=== PATIENT | female | born 1990 | race Caucasian/White ===

== ENCOUNTER 2022-01-02 05:20 | Inpatient (IN) | payer BC ==
[2022-01-02] MEDS ORDERED: Sodium Chloride 0.9% 10 ML Syringe FLUSH PRN (06:30)
[2022-01-02] MEDS ORDERED: Citric Acid/Sodium Citrate Solution 30 ML Cup PO ONE (06:30)
[2022-01-02] MEDS ORDERED: Oxytocin/0.9 % Sodium Chloride 30 UNIT/500 ML BAG IV SCH (06:30)
[2022-01-02] MEDS ORDERED: Sodium Chloride 0.9% 2.5 ML Syringe FLUSH PRN (06:30)
[2022-01-02] MEDS ORDERED: Sodium Chloride 0.9% 20 ML SDV IV PRN (06:30)
[2022-01-02] MEDS: Lactated Ringers 1,000 ML IV SCH ×2 (06:45→08:36)
[2022-01-02] MEDS ORDERED: HYDROmorphone 1 MG/ML Syringe IVPUSH PRN (07:26)
[2022-01-02] MEDS ORDERED: fentaNYL 100 MCG/2 ML SDV IVPUSH PRN ×2 (07:26)
[2022-01-02] MEDS ORDERED: Metoclopramide 10 MG/2 ML SDV IVPUSH PRN (07:26)
[2022-01-02] MEDS ORDERED: Morphine 2 MG/ML SYRINGE IVPUSH PRN (07:26)
[2022-01-02] MEDS ORDERED: Acetaminophen/oxyCODONE 325-5 MG Tab PO PRN ×2 (07:26→09:53)
[2022-01-02] MEDS ORDERED: ePHEDrine 50 MG/ML SDV IVPUSH PRN (07:26)
[2022-01-02] MEDS ORDERED: Naloxone 0.4 MG/ML SDV IVPUSH PRN (07:26)
[2022-01-02] MEDS ORDERED: Ondansetron 4 MG/2 ML SDV IVPUSH PRN ×3 (07:26→09:53)
[2022-01-02] MEDS ORDERED: diphenhydrAMINE 50 MG/ML SDV IVPUSH PRN (07:26)
[2022-01-02] MEDS ORDERED: Albuterol 0.083% 2.5 MG/3 ML Neb Soln NEB PRN (07:26)
[2022-01-02] MEDS ORDERED: Ropivacaine 0.5% 5 MG/ML 30 ML SDV ONE ×2 (07:29→07:30)
[2022-01-02] MEDS ORDERED: Lidocaine 2% 100 MG/5 ML Syringe ONE (07:30)
[2022-01-02] MEDS ORDERED: Oxytocin 10 Units/1 ML SDV ONE ×3 (07:30→07:31)
[2022-01-02] MEDS ORDERED: ceFAZolin 1 GM Vial ONE ×2 (07:31)
[2022-01-02] MEDS ORDERED: Phenylephrine 1% 10 MG/ML SDV ONE (07:31)
[2022-01-02] MEDS ORDERED: Dexamethasone 4 MG/ML 5 ML MDV ONE (07:32)
[2022-01-02] MEDS ORDERED: Morphine PF 10 MG/10 ML SDV ONE (07:32)
[2022-01-02] MEDS ORDERED: ceFAZolin 2 GM in Premix Bag 1 BAG IV ONE (07:45)
[2022-01-02] MEDS ORDERED: Ketorolac 30 MG/ML SDV ONE (09:51)
[2022-01-02] MEDS ORDERED: Lanolin 100% Cream 7 GM Tube TOP PRN (09:53)
[2022-01-02] MEDS ORDERED: Bisacodyl 10 MG Supp RECTAL PRN (09:53)
[2022-01-02] MEDS ORDERED: Lactated Ringers 1,000 ML IV SCH (10:00)
[2022-01-02] MEDS: diphenhydrAMINE 50 MG/ML SDV IVPUSH PRN ×2 (10:17→22:04)
[2022-01-02] MEDS: Ketorolac 30 MG/ML SDV IVPUSH SCH ×3 (10:19→22:04)
[2022-01-02] MEDS: Docusate Sodium 100 MG Cap PO SCH (22:04)
[2022-01-03] MEDS: Ketorolac 30 MG/ML SDV IVPUSH SCH ×2 (04:18→09:40)
[2022-01-03] MEDS ORDERED: Measles, Mumps & Rubella Vaccine 0.5 ML SDV SUBCUT ONE (08:59)
[2022-01-03] MEDS: Docusate Sodium 100 MG Cap PO SCH ×2 (09:41→20:28)
[2022-01-03] MEDS: Acetaminophen/oxyCODONE 325-5 MG Tab PO PRN (16:00)
[2022-01-03] MEDS: Ibuprofen 800 MG Tab PO PRN (20:28)
[2022-01-04] MEDS: Acetaminophen/oxyCODONE 325-5 MG Tab PO PRN ×2 (00:26→06:29)
[2022-01-04] MEDS: Ibuprofen 800 MG Tab PO PRN ×2 (04:43→10:09)
[2022-01-04] MEDS: Docusate Sodium 100 MG Cap PO SCH (10:09)
== END 2022-01-04 11:45 | disposition home or self-care (01) | DRG 540 ==
LOC: MW.OB 05:20 → MERGE 08:00 → MW.OB 19:33
PROVIDERS: ADMIT Obstetrics & Gynecology; ATTEND Obstetrics & Gynecology
PROC: 10D00Z1 Extraction of Products of Conception, Low, Open Approach (ICD-10-PCS; principal; 2022-01-02)
PROC: 3E0234Z Introduction of Serum, Toxoid and Vaccine into Muscle, Percutaneous Approach (ICD-10-PCS; 2022-01-04)
DX: O34.211 Maternal care for low transverse scar from previous cesarean delivery (principal); Z37.0 Single live birth; Z86.16 Personal history of COVID-19; Z3A.39 39 weeks gestation of pregnancy; O99.354 Diseases of the nervous system complicating childbirth; G43.909 Migraine, unspecified, not intractable, without status migrainosus
CPT/HCPCS: 01961; 36415; 59025; 64488; 85014; 85018; 85027; 86592; 86850; 86900; 86901; 90471; 90707; A9270-GY; J0131; J0690; J1100; J1200; J1885; J2274; J2370; J2590; J2795; J7120

== ENCOUNTER 2022-07-07 04:40 | Observation (INO) | payer BC ==
[2022-07-07] MEDS ORDERED: Sodium Chloride 0.9% 1,000 ML IV ONE ×2 (04:56→06:42)
[2022-07-07] MEDS ORDERED: Ondansetron 4 MG/2 ML SDV IVPUSH ONE (04:56)
[2022-07-07] MEDS ORDERED: Ketorolac 30 MG/ML SDV IVPUSH ONE (04:56)
[2022-07-07 05:36] LABS: CARBON DIOXIDE,CO2 26.3 mmol/L (21.0-32.0); POTASSIUM,K 4.1 mmol/L (3.5-5.1)
[2022-07-07] MEDS ORDERED: Iopamidol 755 MG/ML 500 ML Multipack Bottle IVPUSH STA (06:04)
[2022-07-07] MEDS ORDERED: cefTRIAXone 1 GM in Sodium Chloride 0.9% 50 ML IV ONE (06:35)
[2022-07-07] MEDS ORDERED: metroNIDAZOLE/Normal Saline 500 MG in Premix Bag 1 BAG IV ONE (06:35)
[2022-07-07] MEDS ORDERED: Acetaminophen 325 MG Tab PO PRN (09:33)
[2022-07-07] MEDS ORDERED: Acetaminophen/HYDROcodone 325-5 MG Tab PO PRN (09:33)
[2022-07-07] MEDS: Ondansetron 4 MG/2 ML SDV IVPUSH PRN ×3 (09:49→21:48)
[2022-07-07] MEDS: HYDROmorphone 2 MG/ML Syringe IVPUSH PRN ×4 (09:49→22:05)
[2022-07-07] MEDS: Piperacillin/Tazobactam 3.375 GM in Sodium Chloride 0.9% 50 ML IV SCH ×3 (11:13→21:51)
[2022-07-07] MEDS: Sodium Chloride 0.9% 1,000 ML IV SCH (17:54)
[2022-07-08] MEDS: Sodium Chloride 0.9% 1,000 ML IV SCH ×2 (02:29→11:23)
[2022-07-08] MEDS: HYDROmorphone 2 MG/ML Syringe IVPUSH PRN ×5 (02:40→17:25)
[2022-07-08] MEDS: Ondansetron 4 MG/2 ML SDV IVPUSH PRN (02:40)
[2022-07-08] MEDS: Piperacillin/Tazobactam 3.375 GM in Sodium Chloride 0.9% 50 ML IV SCH ×3 (04:53→16:13)
[2022-07-08 07:01] LABS: CARBON DIOXIDE,CO2 22.5 mmol/L (21.0-32.0); POTASSIUM,K 3.8 mmol/L (3.5-5.1)
[2022-07-08] MEDS ORDERED: Metoclopramide 10 MG/2 ML SDV IVPUSH PRN (07:30)
[2022-07-08] MEDS ORDERED: Naloxone 0.4 MG/ML SDV IVPUSH PRN (07:30)
[2022-07-08] MEDS ORDERED: fentaNYL 50 MCG/ML SDV IVPUSH PRN (07:30)
[2022-07-08] MEDS ORDERED: HYDROmorphone 1 MG/ML Syringe IVPUSH PRN (07:30)
[2022-07-08] MEDS ORDERED: Ondansetron 4 MG/2 ML SDV IVPUSH PRN (07:30)
[2022-07-08] MEDS ORDERED: Albuterol 0.083% 2.5 MG/3 ML Neb Soln NEB PRN (07:30)
[2022-07-08] MEDS ORDERED: Morphine 2 MG/ML SYRINGE IVPUSH PRN (07:30)
[2022-07-08] MEDS ORDERED: Scopolamine 1.5 MG Transdermal Patch TOP ONE (07:32)
== END 2022-07-08 19:15 | disposition home or self-care (01) ==
LOC: MW.ED 04:40 → MW.MS 09:29
PROVIDERS: ADMIT Surgery; ATTEND Surgery
DX: K80.00 Calculus of gallbladder with acute cholecystitis without obstruction (principal); Z53.09 Procedure and treatment not carried out because of other contraindication; Z20.822 Contact with and (suspected) exposure to COVID-19; Z79.899 Other long term (current) drug therapy; Z98.890 Other specified postprocedural states
CPT/HCPCS: 36415; 47562; 74177; 74181; 76705; 80053; 81003; 81025; 83690; 85025; 87635; 96361; 96365; 96367; 96375; 96376; 99285; A9270; G0378; J0696; J1170; J1885; J2405; J2543; J3490; J7030; Q9967; U0002

== ENCOUNTER 2022-07-13 02:52 | Inpatient (IN) | payer BC ==
[2022-07-13 03:56] LABS: CARBON DIOXIDE,CO2 27.7 mmol/L (21.0-32.0)
[2022-07-13] MEDS ORDERED: Lactated Ringers 1,000 ML IV ONE ×2 (04:03→05:26)
[2022-07-13] MEDS ORDERED: Morphine 2 MG/ML SYRINGE IVPUSH ONE ×3 (05:00→08:30)
[2022-07-13] MEDS ORDERED: Iopamidol 755 MG/ML 500 ML Multipack Bottle IVPUSH ONE (05:01)
[2022-07-13] MEDS ORDERED: Piperacillin/Tazobactam 4.5 GM in Sodium Chloride 0.9% 100 ML IV ONE (05:48)
[2022-07-13] MEDS ORDERED: Potassium Bicarbonate 25 MEQ Tab.EFF PO STA (05:50)
[2022-07-13] MEDS ORDERED: Potassium Chloride 10% 20 MEQ/15 ML Soln 30 ML UD Cup PO ONE (05:53)
[2022-07-13] MEDS ORDERED: Furosemide 20 MG/2 ML VIAL IVPUSH ONE (10:36)
[2022-07-13] MEDS ORDERED: Furosemide 40 MG/4 ML VIAL IVPUSH ONE (11:15)
[2022-07-13] MEDS ORDERED: Albuterol/Ipratropium 3.0-0.5 MG/3 ML Neb Soln NEB PRN (13:11)
[2022-07-13] MEDS ORDERED: Ondansetron 4 MG/2 ML SDV IVPUSH PRN (13:32)
[2022-07-13] MEDS: Pantoprazole 40 MG in Sodium Chloride 0.9% 10 ML IVPUSH SCH (13:52)
[2022-07-13] MEDS: Morphine 2 MG/ML SYRINGE IVPUSH PRN (13:52)
[2022-07-13] MEDS: Enoxaparin 40 MG/0.4 ML Syringe SUBCUT SCH (13:52)
[2022-07-13] MEDS: Furosemide 40 MG/4 ML VIAL IVPUSH SCH (14:50)
[2022-07-13] MEDS: Piperacillin/Tazobactam 3.375 GM in Sodium Chloride 0.9% 50 ML IV SCH ×2 (14:50→21:00)
[2022-07-13] MEDS: Acetaminophen 325 MG Tab PO PRN ×2 (16:48→21:30)
[2022-07-13] MEDS ORDERED: VANCOmycin 1.5 GM/300 ML 300 ML IV ONE (21:00)
[2022-07-14] MEDS: Piperacillin/Tazobactam 3.375 GM in Sodium Chloride 0.9% 50 ML IV SCH ×4 (02:19→20:27)
[2022-07-14] MEDS: Morphine 2 MG/ML SYRINGE IVPUSH PRN ×3 (02:24→20:34)
[2022-07-14 07:04] LABS: BLOOD UREA NITROGEN,BUN 5 mg/dL (7.0-18.0); CARBON DIOXIDE,CO2 31.3 mmol/L (21.0-32.0); CHLORIDE,CL 93 mmol/L (98-107); GLUCOSE RANDOM 88 mg/dL (74-106); LIPASE 116 U/L (73-393); POTASSIUM,K 2.7 mmol/L (3.5-5.1); SODIUM,NA 136 mmol/L (136-145)
[2022-07-14 07:07] LABS: ESTIMATED GFR 127 mL/min (>60)
[2022-07-14] MEDS ORDERED: NS with KCl 40mEq 1,000 ML IV ONE (08:00)
[2022-07-14] MEDS: Acetaminophen 325 MG Tab PO PRN ×2 (08:30→17:22)
[2022-07-14] MEDS ORDERED: VANCOmycin 1.25 GM/250 ML 250 ML IV SCH (09:00)
[2022-07-14] MEDS ORDERED: Magnesium Oxide 400 MG Tab PO SCH ×2 (09:00)
[2022-07-14] MEDS: Phosphorus #1 250 MG Tab PO SCH ×4 (10:01→23:21)
[2022-07-14] MEDS: Furosemide 40 MG/4 ML VIAL IVPUSH SCH ×2 (10:13→14:00)
[2022-07-14] MEDS: Potassium Chloride 20 MEQ Tab.ER PO SCH ×3 (10:33→23:21)
[2022-07-14 13:10] LABS: CARBON DIOXIDE,CO2 30.3 mmol/L (21.0-32.0); POTASSIUM,K 2.5 mmol/L (3.5-5.1)
[2022-07-14] MEDS ORDERED: Potassium Chloride 20 MEQ Tab.ER PO SCH (14:00)
[2022-07-14] MEDS ORDERED: Potassium Chloride 20 MEQ Tab.ER PO ONE (14:01)
[2022-07-14] MEDS: Pantoprazole 40 MG in Sodium Chloride 0.9% 10 ML IVPUSH SCH (14:18)
[2022-07-14] MEDS: Enoxaparin 40 MG/0.4 ML Syringe SUBCUT SCH (14:29)
[2022-07-14 17:54] LABS: POTASSIUM,K 3.4 mmol/L (3.5-5.1)
[2022-07-14] MEDS: VANCOmycin 1.5 GM/300 ML 1.5 GM in Premix Bag 1 BAG IV SCH (23:19)
[2022-07-15] MEDS: Acetaminophen 325 MG Tab PO PRN ×3 (01:07→21:14)
[2022-07-15] MEDS: Piperacillin/Tazobactam 3.375 GM in Sodium Chloride 0.9% 50 ML IV SCH ×5 (02:16→23:40)
[2022-07-15] MEDS: Phosphorus #1 250 MG Tab PO SCH ×4 (06:34→23:40)
[2022-07-15 07:17] LABS: CARBON DIOXIDE,CO2 22.3 mmol/L (21.0-32.0); POTASSIUM,K 3.8 mmol/L (3.5-5.1)
[2022-07-15] MEDS ORDERED: Furosemide 40 MG/4 ML VIAL IVPUSH SCH (08:00)
[2022-07-15] MEDS ORDERED: Magnesium Sulfate/Water 2 GM in Premix Bag 1 BAG IV ONE (08:00)
[2022-07-15] MEDS: Morphine 2 MG/ML SYRINGE IVPUSH PRN ×3 (08:36→19:11)
[2022-07-15] MEDS ORDERED: Potassium Chloride 20 MEQ Tab.ER PO SCH (09:00)
[2022-07-15] MEDS: Lactated Ringers 1,000 ML IV SCH (11:31)
[2022-07-15] MEDS: VANCOmycin 1.5 GM/300 ML 1.5 GM in Premix Bag 1 BAG IV SCH ×2 (11:31→22:04)
[2022-07-15] MEDS: Enoxaparin 40 MG/0.4 ML Syringe SUBCUT SCH (13:24)
[2022-07-15] MEDS: Pantoprazole 40 MG in Sodium Chloride 0.9% 10 ML IVPUSH SCH ×2 (18:40→19:02)
[2022-07-15] MEDS ORDERED: HYDROmorphone 1 MG/ML Syringe IVPUSH PRN (22:06)
[2022-07-16] MEDS: Lactated Ringers 1,000 ML IV SCH ×3 (03:00→17:08)
[2022-07-16] MEDS: Phosphorus #1 250 MG Tab PO SCH ×3 (06:38→17:05)
[2022-07-16] MEDS: Piperacillin/Tazobactam 3.375 GM in Sodium Chloride 0.9% 50 ML IV SCH ×3 (06:39→17:06)
[2022-07-16 07:03] LABS: CARBON DIOXIDE,CO2 25.8 mmol/L (21.0-32.0); POTASSIUM,K 3.4 mmol/L (3.5-5.1)
[2022-07-16] MEDS ORDERED: Potassium Chloride 20 MEQ Tab.ER PO ONE ×2 (07:31→07:54)
[2022-07-16] MEDS ORDERED: Magnesium Sulfate/Water 2 GM in Premix Bag 1 BAG IV ONE (07:32)
[2022-07-16] MEDS: VANCOmycin 1.5 GM/300 ML 1.5 GM in Premix Bag 1 BAG IV SCH (09:46)
[2022-07-16] MEDS ORDERED: Iopamidol 755 Mg/ML 100 ML Bottle IVPUSH ONE (09:57)
[2022-07-16] MEDS: Enoxaparin 40 MG/0.4 ML Syringe SUBCUT SCH (12:18)
[2022-07-16] MEDS: Pantoprazole 40 MG in Sodium Chloride 0.9% 10 ML IVPUSH SCH (17:04)
== END 2022-07-16 19:00 | DRG 252 ==
LOC: MW.ED 02:52 → MW.ICU 09:23 → MW.MS 19:17
PROVIDERS: ADMIT Student in an Organized Health Care Education/Training Program; ATTEND Family Medicine
DX: K91.89 Other postprocedural complications and disorders of digestive system (principal); K85.80 Other acute pancreatitis without necrosis or infection; J18.9 Pneumonia, unspecified organism; J96.91 Respiratory failure, unspecified with hypoxia; J90 Pleural effusion, not elsewhere classified; Z90.49 Acquired absence of other specified parts of digestive tract; Z98.890 Other specified postprocedural states; Z79.899 Other long term (current) drug therapy
CPT/HCPCS: 36410; 36415; 36556; 71045; 71045-26; 71046; 71046-26; 71275; 71275-26; 74160; 74160-26; 74177; 74177-26; 80048; 80053; 80202; 81001; 83605; 83690; 83735; 83880; 84100; 84132; 84443; 84484; 85025; 86140; 87040; 87086; 93005; 93306; 96361; 96365; 96375; 96376; 99285-25; A9270-GY; C9113; J1170; J1650; J1940; J2270; J2405; J2543; J3370; J3475; J3480; J3490; J7050; J7120; Q9967; U0002

== ENCOUNTER 2022-07-20 14:56 | Emergency (ER) | payer BC ==
[2022-07-20 16:13] LABS: CORONAVIRUS COVID-19 NAA NEGATIVE (NEGATIVE); INFLUENZA A NAA NEGATIVE (NEGATIVE); INFLUENZA B NAA NEGATIVE (NEGATIVE)
[2022-07-20] MEDS ORDERED: Sodium Chloride 0.9% 1,000 ML IV ONE ×2 (16:27→16:34)
[2022-07-20] MEDS ORDERED: HYDROmorphone 1 MG/ML Syringe IVPUSH ONE (16:27)
[2022-07-20] MEDS ORDERED: Ondansetron 4 MG/2 ML SDV IVPUSH ONE (16:27)
[2022-07-20] MEDS ORDERED: Sodium Chloride 0.9% 2.5 ML Syringe FLUSH PRN (16:27)
[2022-07-20] MEDS ORDERED: Sodium Chloride 0.9% 10 ML Syringe FLUSH PRN (16:27)
[2022-07-20] MEDS ORDERED: Acetaminophen 500 MG Tab PO ONE (16:34)
[2022-07-20] MEDS ORDERED: Ketorolac 30 MG/ML SDV IVPUSH ONE (16:34)
[2022-07-20] MEDS ORDERED: Piperacillin/Tazobactam 4.5 GM in Sodium Chloride 0.9% 100 ML IV ONE (16:49)
[2022-07-20] MEDS ORDERED: Iopamidol 755 MG/ML 500 ML Multipack Bottle IVPUSH STA (17:31)
[2022-07-20 17:51] LABS: BLOOD UREA NITROGEN,BUN 8 mg/dL (7.0-18.0); CARBON DIOXIDE,CO2 25.2 mmol/L (21.0-32.0); CHLORIDE,CL 98 mmol/L (98-107); GLUCOSE RANDOM 115 mg/dL (74-106); LIPASE 230 U/L (73-393); SODIUM,NA 136 mmol/L (136-145)
[2022-07-20 18:06] LABS: ESTIMATED GFR 117 mL/min (>60)
== END 2022-07-20 21:55 | disposition home or self-care (01) ==
LOC: MW.ED 14:56
DX: K51.00 Ulcerative (chronic) pancolitis without complications (principal); Z20.822 Contact with and (suspected) exposure to COVID-19
CPT/HCPCS: 0240U; 36415; 74177; 80053; 80307; 81001; 83605; 83690; 83735; 84703; 85025; 87040; 87324; 87507; 96361; 96365; 96375; 99284; A9270; J1170; J1885; J2405; J2543; J3490; J7030; Q9967; 87045; 87046; 87328; 87329; 87449; 87899

== ENCOUNTER 2022-07-22 11:41 | Emergency (ER) | payer BC ==
[2022-07-22] MEDS ORDERED: metroNIDAZOLE/Normal Saline 500 MG in Premix Bag 1 BAG IV ONE (11:51)
[2022-07-22] MEDS ORDERED: Sodium Chloride 0.9% 10 ML Syringe FLUSH PRN (11:51)
[2022-07-22] MEDS ORDERED: Sodium Chloride 0.9% 1,000 ML IV ONE (11:51)
[2022-07-22] MEDS ORDERED: Sodium Chloride 0.9% 2.5 ML Syringe FLUSH PRN (11:51)
[2022-07-22] MEDS ORDERED: Vancomycin 125 MG Cap PO STA (12:00)
[2022-07-22 13:06] LABS: CARBON DIOXIDE,CO2 27.5 mmol/L (21.0-32.0); POTASSIUM,K 3.5 mmol/L (3.5-5.1)
== END 2022-07-22 13:51 | disposition home or self-care (01) ==
LOC: MW.ED 11:41
DX: A04.72 Enterocolitis due to Clostridium difficile, not specified as recurrent (principal)
CPT/HCPCS: 36415; 80053; 83605; 85025; 96365; 99284; A9270; J3490; J7030